=== PATIENT | female | born 1970 | race Caucasian/White ===

== ENCOUNTER 2023-02-15 21:25 | Emergency (ER) | payer SELFPAY ==
--- NOTE | 2023-02-15 21:29 | ECG_ITS ---
[facility] Test Date: 2023-02-15 Pat Name: Adele Leung Department: Room: Gender: Female Prison Officer: : 1970 Requested By: Luis M Del Toro Order Number: [id number] Ezekiel MD: Evert Gray M.D. Measurements Intervals [place] Rate: 60 P: 17 MT: 145 QRS: 7 QRSD: 85 T: 48 QT: 424 QTc: 425 Interpretive Statements SINUS RHYTHM POSSIBLE LEFT ATRIAL ENLARGEMENT [-0.1mV P-WAVE IN V1/V2] POSSIBLE RIGHT VENTRICULAR CONDUCTION DELAY [RSR (QR) IN V1/V2] No previous ECG available for comparison Poor R wave progression Electronically Signed On 02-16-2023 22:18:02 CDT by Evert Gray M.D. [id number]
--- NOTE | 2023-02-15 21:29 | XRR_ITS ---
PROCEDURE INFORMATION: Exam: XR Chest Exam date and time: 02/15/2023 9:55 PM Age: 52 years old Clinical indication: Pain; Chest pressure; Prior surgery; Surgery date: 6+ months; Surgery type: Stents and valve replacement; Additional info: Cp TECHNIQUE: Imaging protocol: Radiologic exam of the chest. Views: 1 view. COMPARISON: No relevant prior studies available. FINDINGS: Lungs: The lungs are hyperinflated, suggesting COPD. No consolidative pulmonary infiltrates are noted. Pleural spaces: No pleural effusion. No pneumothorax. Heart/Mediastinum: No cardiomegaly. Bones/joints: Median sternotomy noted. XR/XR chest 1V portable [id number] IMPRESSION: 1. The lungs are hyperinflated, suggesting COPD. 2. No acute abnormality demonstrated.
[2023-02-15 21:38] VITALS: BP 166/88; PULSE 65; RESP 14; TEMP 36.8; O2SAT 95; BMI 31.8
--- NOTE | 2023-02-15 22:02 | W.ED.CHESTPA ---
HPI - Chest Pain General: Chief Complaint: Chest Pain Stated Complaint: chest pain Time Seen by Provider: 02/15/23 21:31 History of Present Illness: Patient is a 52-year-old female comes to the ED with chest pain. Patient has a history of hypertension, COPD and has had 3 cardiac stents placed in the past. Patient states that she is compliant with all her current medications and takes warfarin. Patient's chest pain started while she was exerting herself [place] 3 days ago. Chest pain was located on the left side of chest and described as sharp and aching type pain. Patient says her chest pain improved when she was at rest but was still present. Endorses some shortness of breath as well. Pain worsens with exertion, deep inspiration or coughing. She rates the pain at night and 8 out of 10. Denies any fevers, vomiting, nausea, abdominal pain, bladder or bowel symptoms. Patient is new to [facility] and just moved here couple weeks ago. She does not have a primary care provider locally and would like referral for local PCP. Associated symptoms: Reports dyspnea; Deny abdominal pain, fever(s), nausea, palpitations or vomiting Review of Systems Const: Denies: fever(s), chills or fatigue Eyes: Denies: change in vision or eye discomfort ENMT: Denies: throat pain, odynophagia, nasal discharge or nasal congestion Card: Reports: chest pain; Denies: palpitations, edema, swelling of feet/ankles, dyspnea on exertion or orthopnea Resp: Reports: dyspnea; Denies: productive cough or non-productive cough GI: Denies: abdominal pain, nausea, vomiting, diarrhea, constipation or hematochezia : Denies: flank pain, dysuria or hematuria Musc: Denies: neck pain, back pain or extremity swelling Skin/Breast: Denies: rash or new lesions Neuro: Denies: headache(s), numbness in extremities or weakness in extremities PFSH ED PFSH: Medical History COPD (chronic obstructive pulmonary disease) Hypertension Surgical History Hx of heart artery stent Physical Exam Const: COMMON NORMALS: patient oriented x3 and alert GENERAL APPEARANCE: cooperative HENMT: COMMON NORMALS: normocephalic HEAD & SCALP: normocephalic MOUTH: Normal oral and palatal mucosa present THROAT: posterior oropharynx normal and uvula midline Neck/C-Spine: COMMON NORMALS: supple GENERAL: Yes normal visual inspection Resp: COMMON NORMALS: normal respiratory effort, No retractions, No use of accessory muscles and clear to auscultation bilaterally AUSCULTATION: clear to auscultation bilaterally Cardio: COMMON NORMALS: regular rate, regular rhythm, S1 normal heart sound present, S2 normal heart sound present, No gallops present (Cardio), No clicks present (Cardio), No murmurs present (Cardio) and Peripheral pulses 2+ throughout RATE: regular rate RHYTHM: regular rhythm HEART SOUNDS: S1 normal heart sound present and S2 normal heart sound present PERIPHERAL PULSES: Peripheral pulses 2+ throughout GI: COMMON NORMALS: Normal to inspection, nondistended, normoactive bowel sounds present, Soft to palpation, non-tender and no masses PALPATION: Yes Soft to palpation : COMMON NORMALS: Yes no CVA tenderness BLADDER/KIDNEY EXAM: Yes no CVA tenderness Back/Pelvis: COMMON NORMALS: no CVA tenderness Extremity: COMMON NORMALS: normal to inspection Neuro: COMMON NORMALS: patient oriented x3 SENSORIUM/ORIENTATION: Yes alert GAIT: Yes Normal gait present Skin: GENERAL SKIN EXAM: dry skin Course Vital Signs: Vital signs: Vital Signs Temperature 98.3 F 02/15/23 21:38 Pulse Rate 64 02/16/23 01:04 Respiratory Rate 16 02/16/23 01:04 Blood Pressure 140/78 02/16/23 01:04 Pulse Oximetry 95 02/16/23 01:04 Oxygen Delivery Me thod Room Air 02/16/23 00:30 MDM - Chest Pain Medical Decision Making Patient is a 52-year-old female comes to the ED with chest pain. Patient has a history of hypertension, COPD and has had 3 cardiac stents placed in the past. Patient states that she is compliant with all her current medications and takes warfarin. Patient's chest pain started while she was exerting herself working [place] 3 days ago. Chest pain was located on the left side of chest and described as sharp and aching type pain. Patient says her chest pain improved when she was at rest but was still present. Endorses some shortness of breath as well. Pain worsens with exertion, deep inspiration or coughing. She rates the pain at night and 8 out of 10. Denies any fevers, vomiting, nausea, abdominal pain, bladder or bowel symptoms. Patient is new to [facility] and just moved here couple weeks ago. She does not have a primary care provider locally and would like referral for local PCP. Vital stable. Exam of patient is benign. CBC and CMP are unremarkable. Troponins negative. INR of 1.35. EKG shows no acute findings. Chest x-ray shows no acute findings. Patient was given aspirin and morphine to help with pain. I placed an order with case management for patient to be set up with a PCP here locally since she is no one down. Patient was stable for discharge home and diagnosed with atypical chest pain. Told to follow-up with her PCP at her scheduled appointment. Strict return to ED precautions given. Patient understood and agreed with plan. Lab Data I reviewed the patient's lab results. 02/15/23 22:00 02/15/23 22:00 Radiology Impressions Chest X-Ray 02/15/23 21:29 IMPRESSION: 1. The lungs are hyperinflated, suggesting COPD. 2. No acute abnormality demonstrated. Laboratory Results WBC 7.3 10^3/uL (4.0-10.0) 02/15/23 22:00 RBC 4.41 10^6/uL (4.1-5.3) 02/15/23 22:00 Hgb 14.4 g/dL (11.5-15.3) 02/15/23 22:00 Hct 43.3 % (37.0-47.0) 02/15/23 22:00 MCV 98.2 fl (81-99) 02/15/23 22:00 MCH 32.7 pg (28.0-34.0) 02/15/23 22:00 MCHC 33.3 g/dL (30.0-36.0) 02/15/23 22:00 RDW 14.1 % (12.1-15.1) 02/15/23 22:00 Plt Count 220 10^3/cmm (130-400) 02/15/23 22:00 MPV 11.1 fL (7.4-10.4) H 02/15/23 22:00 Neut % (Auto) 49.0 % 02/15/23 22:00 Lymph % (Auto) 32.1 % 02/15/23 22:00 [place] % (Auto) 13.8 % 02/15/23 22:00 Eos % (Auto) 3.7 % 02/15/23 22:00 Baso % (Auto) 1.1 % 02/15/23 22:00 Neut # (Auto) 3.60 10^3/uL (1.8-7.7) 02/15/23 22:00 Lymph # (Auto) 2.4 10^3/uL (0.8-4.8) 02/15/23 22:00 [place] # (Auto) 1.0 10^3/uL (0.2-0.9) H 02/15/23 22:00 Eos # (Auto) 0.3 10^3/uL (0.0-0.8) 02/15/23 22:00 Baso # (Auto) 0.1 10^3/uL (0.0-0.1) 02/15/23 22:00 Nucleated RBC % (auto) 0 % 02/15/23 22:00 Nucleated RBCs # 0.0 /100WBC 02/15/23 22:00 PT 17.10 SECONDS (12.1-14.9) H 02/15/23 22:00 INR 1.35 (0.8-1.2) H 02/15/23 22:00 Sodium 139 mmol/L (136-145) 02/15/23 22:00 Potassium 4.4 mmol/L (3.5-5.1) 02/15/23 22:00 Chloride 104 mmol/L (98-107) 02/15/23 22:00 Carbon Dioxide 27 mmol/L (22-29) 02/15/23 22:00 Anion Gap 12.4 (5-19) 02/15/23 22:00 BUN 16 mg/dL (6-20) 02/15/23 22:00 Creatinine 0.8 mg/dL (0.5-0.9) 02/15/23 22:00 GFR Calculation 74.7 mL/min (90-130) L 02/15/23 22:00 Glucose 86 mg/dL (65-115) 02/15/23 22:00 Calculated Osmolality 288 mOsm/kg (285-295) 02/15/23 22:00 Calcium 9.4 mg/dL (8.5-10.5) 02/15/23 22:00 Total Bilirubin 0.4 mg/dL (0.15-1.2) 02/15/23 22:00 AST 18 U/L (0-32) 02/15/23 22:00 ALT 19 U/L (0-33) 02/15/23 22:00 Alkaline Phosphatase 86 U/L (35-105) 02/15/23 22:00 Troponin T Baseline 9 ng/L (0-10) 02/15/23 22:00 Troponin T 120 Minute 7.87 ng/L (0-10) 02/16/23 00:00 Delta Troponin T -1.14 ABS# (0-10) L 02/16/23 00:00 Troponin T Hi Sens 6Hr Cancelled 02/16/23 04:00 Troponin T Hi Sens 6Hr Delta Cancelled 02/16/23 04:00 Total Protein 6.4 g/dL (6.6-8.7) L 02/15/23 22:00 Albumin 4.2 g/dL (3.5-5.2) 02/15/23 22:00 Globulin 2.2 g/dL (1.3-4.6) 02/15/23 22:00 EKG Data EKG 1: EKG interpretation date: 02/15/23 Interpretation: Normal sinus rhythm, 60 bpm, no ST segment elevation or depression seen. Discharge Plan Discharge Patient Disposition: Home Clinical Impression: Atypical chest pain Condition: Stable Discharge Orders: Discharge ED (Routine); Ordered 02/16/23 Ordered By: Davian Ayala Discharge Diet: Regular Discharge Activity: Increase activity as tolerated Patient Instructions: Chest Pain (ED) Activity Restrictions/Additional Instructions: Follow-up with medical provider as directed. Case management should contact you in the next several days to set up an appointment with a primary care physician. Continue taking all home medications as previously prescribed. Return to the ER or your medical provider if condition worsens. Please read and understand discharge instructions. Thank you for choosing [facility] for your healthcare needs today. Please realize this is an emergency room and that we are providing you with a medical screening exam and this may not be complete and all inclusive of all the testing and or work up that you may need to determine your ailment or severity of your illness. It is very important that you follow up as instructed or that you return to the Emergency Department should you have concerns or if your condition changes or worsens in any way. Coding Level of Care Code ED Plant Taxonomy Teacher for Marquise Mendiola
[2023-02-15 22:03] VITALS: BP 123/75; PULSE 62; RESP 14; O2SAT 96
[2023-02-15 22:06] LABS: Basophils # 0.1 10^3/uL (0.0-0.1); Basophils % 1.1 %; Eosinophils # 0.3 10^3/uL (0.0-0.8); Eosinophils % 3.7 %; Hematocrit 43.3 % (37.0-47.0); Hemoglobin 14.4 g/dL (11.5-15.3); Lymphocytes # 2.4 10^3/uL (0.8-4.8); Lymphocytes % 32.1 %; Mean Corpuscular HGB Conc 33.3 g/dL (30.0-36.0); Mean Corpuscular Hemoglobin 32.7 pg (28.0-34.0); Mean Corpuscular Volume 98.2 fl (81-99); Mean Platelet Volume 11.1 fL (7.4-10.4); Monocytes % 13.8 %; Nucleated Red Blood Cells % 0 %; Platelet Count 220 10^3/cmm (130-400); Red Blood Count 4.41 10^6/uL (4.1-5.3); Red Cell Distribution Width 14.1 % (12.1-15.1); White Blood Count 7.3 10^3/uL (4.0-10.0)
[2023-02-15] MEDS: aspirin 81 mg Chew Tablet 324 MG PO (22:12)
[2023-02-15 22:13] VITALS: RESP 16; O2SAT 96
[2023-02-15] MEDS: morphine 4 mg/mL SDV 1 mL IVP (22:13)
[2023-02-15 22:17] LABS: INR 1.35 (0.8-1.2)
[2023-02-15] MEDS: ondansetron 2 mg/ML SDV 2 mL 4 MG IVP (22:17)
[2023-02-15 22:23] LABS: Alanine Aminotransferase 19 U/L (0-33); Albumin Level 4.2 g/dL (3.5-5.2); Alkaline Phosphatase 86 U/L (35-105); Anion Gap 12.4 (5-19); Aspartate Amino Transferase 18 U/L (0-32); Blood Urea Nitrogen 16 mg/dL (6-20); Calcium 9.4 mg/dL (8.5-10.5); Carbon Dioxide 27 mmol/L (22-29); Chloride 104 mmol/L (98-107); Creatinine Clr Calc Pharmacy 81.3476; Globulin 2.2 g/dL (1.3-4.6); Glomerular Filtration Rate 74.7 mL/min (90-130); Glucose 86 mg/dL (65-115); Osmolality Calculated 288 mOsm/kg (285-295); Potassium 4.4 mmol/L (3.5-5.1); Sodium 139 mmol/L (136-145); Total Bilirubin 0.4 mg/dL (0.15-1.2); Total Protein 6.4 g/dL (6.6-8.7)
[2023-02-15 22:25] LABS: Troponin(5th) Baseline 9 ng/L (0-10)
[2023-02-15 23:32] VITALS: BP 173/71; PULSE 64; RESP 20; O2SAT 93
--- NOTE | 2023-02-15 23:48 | ECG_ITS ---
[facility] Test Date: 2023-02-15 Pat Name: Adele Leung Department: Room: Gender: Female Manager Internal: : 1970 Requested By: Luis M Del Toro Order Number: [id number] Ezekiel MD: Evert Gray M.D. Measurements Intervals [place] Rate: 60 P: 26 ID: [id number] QRS: 21 QRSD: 89 T: 52 QT: 425 QTc: 427 Interpretive Statements SINUS RHYTHM POSSIBLE RIGHT VENTRICULAR CONDUCTION DELAY [RSR (QR) IN V1/V2] SEPTAL MYOCARDIAL INFARCTION , OF INDETERMINATE AGE [40+ ms Q WAVE IN V1/V2] Compared to ECG 02/15/2023 21:47:51 Myocardial infarct finding now present Electronically Signed On 02-16-2023 22:36:04 CDT by Evetr Gray M.D. [id number]
[2023-02-16] VITALS: BP 134/74; PULSE 61; O2SAT 93
[2023-02-16 00:30] VITALS: BP 156/75; PULSE 63; O2SAT 93
[2023-02-16 00:33] LABS: Troponin 5 2HR 7.87 ng/L (0-10)
[2023-02-16 00:46] LABS: Troponin 5 2HR Delta -1.14 ABS# (0-10)
[2023-02-16] MEDS: HYDROcodone-acetaminophen 7.5-325 mg Tablet 1 TAB PO (00:53)
[2023-02-16 01:04] VITALS: BP 140/78; PULSE 64; RESP 16; O2SAT 95
--- NOTE | 2023-02-16 11:22 | PC.NURSE ---
Patient was seen in the ED on 02/16/23. She is new to the area and needs set up with a PCP. TCM attempted to call patient and had to leave a message.
--- NOTE | 2023-02-24 10:20 | DCPLANNER ---
TCM called patient due to no primary care physician - no answer at this time.
== END 2023-02-16 01:08 | disposition home or self-care (01) ==
PROVIDERS: Emergency Medicine; Emergency Provider Physician Assistant
DX: R07.89 Other chest pain (principal); J44.9 Chronic obstructive pulmonary disease, unspecified; I10 Essential (primary) hypertension
CPT/HCPCS: 71045; 80053; 84484; 85025; 85610; 93005; 96374; 96375; 99285; J2270; J2405

== ENCOUNTER 2023-07-23 18:59 | Emergency (ER) | payer BC, MEDICAID, SELFPAY ==
[2023-07-23] VITALS (14 sets, daily range): BP systolic 108–164; BP diastolic 61–97; PULSE 106–120; RESP 15–23; TEMP 36.7–37.9; O2SAT 99–100; BMI 30.2
--- NOTE | 2023-07-23 19:05 | ED_ITS ---
Documented by User: RENU Cash 07/23/23 22:41 HPI - Abdominal Pain General: Chief Complaint: GI Bleed Stated Complaint: ABD PAIN Time Seen by Provider: 07/23/23 19:05 History of Present Illness: 53-year-old female comes in today for concerns of GI bleed. Patient reports that she had an INR done on which showed her result at 10.7. Patient since then has held her warfarin. Patient reports her INR from last week was 2.6. Patient noticed black stools today. Patient feels weak and like she is going to pass out. Patient does have a history of blood transfusion, prior GI bleed, coronary artery disease, thyroid disorder, and hypertension. Patient has had abdominal surgeries for hernia repair, hysterectomy,, gallbladder, and a ppendectomy. Patient has a mechanical valve. Patient appears pale. Patient appears nontoxic. Patient appears in mild pain. Patient reports taking 2 doses of oral vitamin K. Associated Symptoms: Reports change in stool character and melena; Denies chills and fever(s) Review of Systems General: Reports: 10 or more systems reviewed and unremarkable except in HPI and below Const: Reports: fatigue; Denies: fever(s) or chills Card: Denies: chest pain Resp: Denies: dyspnea GI: Reports: change in stool character and melena : Denies: difficulty voiding PFSH ED PFSH: Medical History COPD (chronic obstructive pulmonary disease) Hypertension Surgical History Hx of heart artery stent Physical Exam Const: COMMON NORMALS: alert HENMT: COMMON NORMALS: normocephalic HEAD & SCALP: normocephalic MOUTH: Normal oral and palatal mucosa present Neck/C-Spine: COMMON NORMALS: full ROM Resp: COMMON NORMALS: normal respiratory effort and clear to auscultation bilaterally AUSCULTATION: clear to auscultation bilaterally Cardio: COMMON NORMALS: regular rate and regular rhythm RATE: regular rate RHYTHM: regular rhythm GI: COMMON NORMALS: Soft to palpation AUSCULTATION: Yes normoactive bowel sounds PALPATION: Yes Soft to palpation and Yes Tenderness to palpation present (GI) (Mild, generalized) RECTAL EXAM: heme positive stool Back/Pelvis: COMMON NORMALS: thoracic and lumbar spine normal to inspection Extremity: COMMON NORMALS: no pedal edema Neuro: SENSORIUM/ORIENTATION: Yes alert Skin: NARRATIVE SKIN EXAM: Pale skin color Course ED course: 2029, reviewed patient with Dr. Kam, attending ER physician. INR came back greater than 23 assumed care of of patient. Vital Signs: Vital signs: Vital Signs Temperature 98.8 F 07/23/23 22:09 Pulse Rate 106 H 07/23/23 22:09 Respiratory Rate 20 H 07/23/23 22:18 Blood Pressure 133/87 07/23/23 22:09 Pulse Oximetry 99 07/23/23 22:18 Oxygen Delivery Me thod Room Air 07/23/23 22:01 MDM - Abdominal Pain Medical Decision Making 53-year-old female comes in today for complaints of black tarry stools and abdo adria discomfort. Patient has a history of GI bleed and believes she has a present GI bleed. Patient reports no zaria blood in the stool. Abdomen soft with generalized tenderness. Rectal exam notes black stool hemoccult postive. Skin color is pale. Respirations are even. Lungs are clear to auscultation. Vital signs note some mild tachycardia and a temperature of 100.3. Differential diagnosis includes not limited to GI bleed, anticoagulated, bowel perforation, bowel obstruction. Lab Data 07/23/23 19:20 07/23/23 19:20 Labs/Radiology: Radiology Impressions Abdomen/Pelvis CT 07/23/23 19:12 IMPRESSION: 1. Patchy ground-glass opacities at each lung base may reflect developing pneumonitis which could contribute to nausea. Otherwise, no acute abnormality to explain patient's symptoms. No evidence of bowel obstruction. No visible gastrointestinal bleeding. 2. Low-attenuation bilateral renal lesions are likely cysts, but cannot be confirmed as simple cyst by attenuation coefficient. Consider nonemergent renal mass protocol CT or MR for full characterization. COMMENTS: Consistent with the [place] [employer]'s Incidental Findings Committee white paper (J Am Bambi Radiol 2018): Any incidental renal lesion less than 1 cm or classified as too small to characterize, or any incidental cystic renal lesion characterized as simple-appearing, is likely benign. No follow-up imaging is recommended for these lesions per consensus recommendations based on imaging criteria. Chest X-Ray 07/23/23 19:47 IMPRESSION: Hyperinflated but clear lungs. No other acute cardiopulmonary abnormality. Laboratory Results WBC 14.57 10^3/uL (3.29-11.43) H 07/23/23 19:20 RBC 1.83 10^6/uL (3.85-5.65) L 07/23/23 19:20 Hgb 6.00 g/dL (11.27-16.99) L* 07/23/23 19:20 Hct 18.0 % (36-47) L* 07/23/23 19:20 MCV 98.4 fl (85-98) H 07/23/23 19:20 MCH 32.8 pg (27-33) 07/23/23 19:20 MCHC 33.3 g/dL (30-55) 07/23/23 19:20 RDW 14.9 % (12.1-15.1) 07/23/23 19:20 Plt Count 140 10^3/cmm (157-399) L 07/23/23 19:20 MPV 12.6 fL (7.4-10.4) H 07/23/23 19:20 Neut % (Auto) 75.3 % 07/23/23 19:20 Lymph % (Auto) 16.2 % 07/23/23 19:20 [place] % (Auto) 7.5 % 07/23/23 19:20 Eos % (Auto) 0.1 % 07/23/23 19:20 Baso % (Auto) 0.2 % 07/23/23 19:20 Neut # (Auto) 10.97 10^3/uL (1.8-7.7) H 07/23/23 19:20 Lymph # (Auto) 2.4 10^3/uL (0.8-4.8) 07/23/23 19:20 [place] # (Auto) 1.1 10^3/uL (0.2-0.9) H 07/23/23 19:20 Eos # (Auto) 0.0 10^3/uL (0.0-0.8) 07/23/23 19:20 Baso # (Auto) 0.0 10^3/uL (0.0-0.1) 07/23/23 19:20 Nucleated RBC % (auto) 0.3 % 07/23/23 19:20 Nucleated RBCs # 0.0 /100WBC 07/23/23 19:20 PT > 120.00 SECONDS (12.1-14.9) H 07/23/23 20:40 INR > 20.00 (0.8-1.2) H* 07/23/23 20:40 APTT 76.3 SECONDS (23.9-36.7) H 07/23/23 20:40 Fibrinogen 316 mg/dL (174-498) 07/23/23 20:40 D-Dimer 0.31 ug/mLFEU (0-0.59) 07/23/23 20:40 Sodium 143 mmol/L (136-145) 07/23/23 19:20 Potassium 3.9 mmol/L (3.5-5.1) 07/23/23 19:20 Chloride 113 mmol/L (98-107) H 07/23/23 19:20 Carbon Dioxide 23 mmol/L (22-29) 07/23/23 19:20 Anion Gap 10.9 (5-19) 07/23/23 19:20 BUN 52 mg/dL (6-20) H 07/23/23 19:20 Creatinine 0.6 mg/dL (0.5-0.9) 07/23/23 19:20 GFR Calculation 103.8 mL/min (90-130) 07/23/23 19:20 Glucose 133 mg/dL (65-115) H 07/23/23 19:20 Calculated Osmolality 312 mOsm/kg (285-295) H 07/23/23 19:20 Calcium 8.1 mg/dL (8.5-10.5) L 07/23/23 19:20 Total Bilirubin 0.2 mg/dL (0.15-1.2) 07/23/23 19:20 AST 16 U/L (0-32) 07/23/23 19:20 ALT 14 U/L (0-33) 07/23/23 19:20 Alkaline Phosphatase 39 U/L (35-105) 07/23/23 19:20 Troponin T Baseline 9 ng/L (0-10) 07/23/23 19:20 Troponin T 120 Minute 13.51 ng/L (0-10) H 07/23/23 21:25 Delta Troponin T 4.51 ABS# (0-10) 07/23/23 21:25 Total Protein 5.0 g/dL (6.6-8.7) L 07/23/23 19:20 Albumin 3.3 g/dL (3.5-5.2) L 07/23/23 19:20 Globulin 1.7 g/dL (1.3-4.6) 07/23/23 19:20 Lipase 33 U/L (13-60) 07/23/23 19:20 Urine Color Yellow (Yellow) 07/23/23 21:45 Urine Appearance Clear (CLEAR) 07/23/23 21:45 Urine pH 6.5 (5-7) 07/23/23 21:45 Ur Specific [place] 1.000 (1.005-1.030) L 07/23/23 21:45 Urine Protein Trace (Negative) 07/23/23 21:45 Urine Glucose (UA) Norm (Normal) 07/23/23 21:45 Urine Ketones Negative (Negative) 07/23/23 21:45 Urine Blood 3+ (Negative) H 07/23/23 21:45 Urine Nitrate Negative (Negative) 07/23/23 21:45 Urine Bilirubin Neg (Negative) 07/23/23 21:45 Urine Urobilinogen Neg mg/dL (Negative) 07/23/23 21:45 Ur Leukocyte Esterase Trace (Negative) H 07/23/23 21:45 Urine RBC 15-25 /hpf (0-2) H 07/23/23 21:45 Urine WBC Rare /hpf (0-5) 07/23/23 21:45 Ur Squamous Epith Cells 0-4 /hpf (0-5) H 07/23/23 21:45 Amorphous Sediment Not Reportable 07/23/23 21:45 Urine Bacteria None /hpf (NONE) 07/23/23 21:45 Nasal Influ A H1 2009 PCR Not detected (NOT DETECT) 07/23/23 20: Adenovirus (PCR) Not detected (NOT DETECT) 07/23/23 20: C. pneumoniae DNA (PCR) Not detected (NOT DETECT) 07/23/23 20: Coronavirus 229E (PCR) Not detected (NOT DETECT) 07/23/23 20: Human Metapneumovir PCR Not detected (NOT DETECT) 07/23/23 20: Influenza A (H1) PCR Not detected (NOT DETECT) 07/23/23 20:23 Influenza A (H3) PCR Not detected (NOT DETECT) 07/23/23 20:23 Influenza Type A (PCR) Not detected (NOT DETECT) 07/23/23 20:23 Influenza Type B (PCR) Not detected (NOT DETECT) 07/23/23 20:23 M. pneumoniae (PCR) Not detected (NOT DETECT) 07/23/23 20:23 Parainfluenza 1 (PCR) Not detected (NOT DETECT) 07/23/23 20:23 Parainfluenza 2 (PCR) Not detected (NOT DETECT) 07/23/23 20:23 Parainfluenza 3 (PCR) Not detected (NOT DETECT) 07/23/23 20:23 Parainfluenza 4 (PCR) Not detected (NOT DETECT) 07/23/23 20:23 RSV Type A (PCR) Not detected (NOT DETECT) 07/23/23 20:23 RSV Type B (PCR) Not detected (NOT DETECT) 07/23/23 20:23 Entero/Rhino (PCR) Not detected (NOT DETECT) 07/23/23 20:23 SARS-CoV-2 (PCR) Not detected (NOT DETECT) 07/23/23 20:23 Blood Type A Positive 07/23/23 19:20 Rho(D) Type Positive 07/23/23 19:20 Antibody Screen Negative 07/23/23 19:20 Crossmatch See Detail 07/23/23 19:20 All radiology interpretation(s) finalized by discharge Discharge Plan Discharge Patient Disposition: Xfer Short-Term Hosp Clinical Impression: Warfarin-induced coagulopathy GI (gastrointestinal bleed) Qualifiers: GI bleed type/associated pathology: unspecified gastrointestinal hemorrhage type Qualified Code(s): K92.2 - Gastrointestinal hemorrhage, unspecified Condition: Critical Coding Level of Care Code ED Delivery Motorcycle Driver for Chg Fwd Documented by User: Eduar Kam DO 07/23/23 23:34 HPI - Abdominal Pain General: Chief Complaint: GI Bleed Stated Complaint: ABD PAIN Time Seen by Provider: 07/23/23 19:05 [facility] Medical History COPD (chronic obstructive pulmonary disease) Hypertension Surgical History Hx of heart artery stent Course Vital Signs: Vital signs: Vital Signs Temperature 98.8 F 07/23/23 22:09 Pulse Rate 106 H 07/23/23 22:09 Respiratory Rate 20 H 07/23/23 22:18 Blood Pressure 133/87 07/23/23 22:09 Pulse Oximetry 99 07/23/23 22:18 Oxygen Delivery Me thod Room Air 07/23/23 22:01 MDM - Abdominal Pain Medical Decision Making 53-year-old female comes in today for complaints of black tarry stools and abdominal discomfort. Patient has a history of GI bleed and believes she has a present GI bleed. Patient reports no zaria blood in the stool. Abdomen soft with generalized tenderness. Rectal exam notes black stool hemoccult postive. Skin color is pale. Respirations are even. Lungs are clear to auscultation. Vital signs note some mild tachycardia and a temperature of 100.3. Differential diagnosis includes not limited to GI bleed, anticoagulated, bowel perforation, bowel obstruction. This patient was originally seen by RENU Ibarra. I agree with his history, evaluation, and initial treatment. I have seen the patient as well, and examined her. This patient has multiple problems. She has an upper GI bleed, with no clear source by CT. Her hemoglobin is 6. Her BUN is elevated at 52. INR is greater than 20. We have 2 units of packed red cells crossmatched for her. We have 2 units of FFP so far ready for transfusion. She has 4 lines for access. The patient has a temperature as well. Some patchy groundglass opacities in the bases of her lungs by abdominal CT with a clear chest x-ray. She is covered with Zosyn for this. This may be driving a Coumadin coagulopathy of some sort. DIC panel is also pending. We do not have GI services or critical care available at this facility. This patient needs both. I spoke with the hospitalist team at [facility] in [facility]. They are willing to take in transfer. They suggest more FFP, which I agree the patient will need, but we will not have time to infuse more than 2 units here, as she is almost ready to leave the facility. We have contacted area EMS services, but they have declined due to weather. The patient will have to go by ground. Lab Data 07/23/23 19:20 07/23/23 19:20 Labs/Radiology: Radiology Impressions Abdomen/Pelvis CT 07/23/23 19:12 IMPRESSION: 1. Patchy ground-glass opacities at each lung base may reflect developing pneumonitis which could contribute to nausea. Otherwise, no acute abnormality to explain patient's symptoms. No evidence of bowel obstruction. No visible gastrointestinal bleeding. 2. Low-attenuation bilateral renal lesions are likely cysts, but cannot be confirmed as simple cyst by attenuation coefficient. Consider nonemergent renal mass protocol CT or MR for full characterization. COMMENTS: Consistent with the [place] [employer]'s Incidental Findings Committee white paper (J Am Bambi Radiol 2018): Any incidental renal lesion less than 1 cm or classified as too small to characterize, or any incidental cystic renal lesion characterized as simple-appearing, is likely benign. No follow-up imaging is recommended for these lesions per consensus recommendations based on imaging criteria. Chest X-Ray 07/23/23 19:47 IMPRESSION: Hyperinflated but clear lungs. No other acute cardiopulmonary abnormality. Laboratory Results WBC 14.57 10^3/uL (3.29-11.43) H 07/23/23 19:20 RBC 1.83 10^6/uL (3.85-5.65) L 07/23/23 19:20 Hgb 6.00 g/dL (11.27-16.99) L* 07/23/23 19:20 Hct 18.0 % (36-47) L* 07/23/23 19:20 MCV 98.4 fl (85-98) H 07/23/23 19:20 MCH 32.8 pg (27-33) 07/23/23 19:20 MCHC 33.3 g/dL (30-55) 07/23/23 19:20 RDW 14.9 % (12.1-15.1) 07/23/23 19:20 Plt Count 140 10^3/cmm (157-399) L 07/23/23 19:20 MPV 12.6 fL (7.4-10.4) H 07/23/23 19:20 Neut % (Auto) 75.3 % 07/23/23 19:20 Lymph % (Auto) 16.2 % 07/23/23 19:20 [place] % (Auto) 7.5 % 07/23/23 19:20 Eos % (Auto) 0.1 % 07/23/23 19:20 Baso % (Auto) 0.2 % 07/23/23 19:20 Neut # (Auto) 10.97 10^3/uL (1.8-7.7) H 07/23/23 19:20 Lymph # (Auto) 2.4 10^3/uL (0.8-4.8) 07/23/23 19:20 [place] # (Auto) 1.1 10^3/uL (0.2-0.9) H 07/23/23 19:20 Eos # (Auto) 0.0 10^3/uL (0.0-0.8) 07/23/23 19:20 Baso # (Auto) 0.0 10^3/uL (0.0-0.1) 07/23/23 19:20 Nucleated RBC % (auto) 0.3 % 07/23/23 19:20 Nucleated RBCs # 0.0 /100WBC 07/23/23 19:20 PT > 120.00 SECONDS (12.1-14.9) H 07/23/23 20:40 INR > 20.00 (0.8-1.2) H* 07/23/23 20:40 APTT 76.3 SECONDS (23.9-36.7) H 07/23/23 20:40 Fibrinogen 316 mg/dL (174-498) 07/23/23 20:40 D-Dimer 0.31 ug/mLFEU (0-0.59) 07/23/23 20:40 Sodium 143 mmol/L (136-145) 07/23/23 19:20 Potassium 3.9 mmol/L (3.5-5.1) 07/23/23 19:20 Chloride 113 mmol/L (98-107) H 07/23/23 19:20 Carbon Dioxide 23 mmol/L (22-29) 07/23/23 19:20 Anion Gap 10.9 (5-19) 07/23/23 19:20 BUN 52 mg/dL (6-20) H 07/23/23 19:20 Creatinine 0.6 mg/dL (0.5-0.9) 07/23/23 19:20 GFR Calculation 103.8 mL/min (90-130) 07/23/23 19:20 Glucose 133 mg/dL (65-115) H 07/23/23 19:20 Calculated Osmolality 312 mOsm/kg (285-295) H 07/23/23 19:20 Calcium 8.1 mg/dL (8.5-10.5) L 07/23/23 19:20 Total Bilirubin 0.2 mg/dL (0.15-1.2) 07/23/23 19:20 AST 16 U/L (0-32) 07/23/23 19:20 ALT 14 U/L (0-33) 07/23/23 19:20 Alkaline Phosphatase 39 U/L (35-105) 07/23/23 19:20 Troponin T Baseline 9 ng/L (0-10) 07/23/23 19:20 Troponin T 120 Minute 13.51 ng/L (0-10) H 07/23/23 21:25 Delta Troponin T 4.51 ABS# (0-10) 07/23/23 21:25 Total Protein 5.0 g/dL (6.6-8.7) L 07/23/23 19:20 Albumin 3.3 g/dL (3.5-5.2) L 07/23/23 19:20 Globulin 1.7 g/dL (1.3-4.6) 07/23/23 19:20 Lipase 33 U/L (13-60) 07/23/23 19:20 Urine Color Yellow (Yellow) 07/23/23 21:45 Urine Appearance Clear (CLEAR) 07/23/23 21:45 Urine pH 6.5 (5-7) 07/23/23 21:45 Ur Specific [place] 1.000 (1.005-1.030) L 07/23/23 21:45 Urine Protein Trace (Negative) 07/23/23 21:45 Urine Glucose (UA) Norm (Normal) 07/23/23 21:45 Urine Ketones Negative (Negative) 07/23/23 21:45 Urine Blood 3+ (Negative) H 07/23/23 21:45 Urine Nitrate Negative (Negative) 07/23/23 21:45 Urine Bilirubin Neg (Negative) 07/23/23 21:45 Urine Urobilinogen Neg mg/dL (Negative) 07/23/23 21:45 Ur Leukocyte Esterase Trace (Negative) H 07/23/23 21:45 Urine RBC 15-25 /hpf (0-2) H 07/23/23 21:45 Urine WBC Rare /hpf (0-5) 07/23/23 21:45 Ur Squamous Epith Cells 0-4 /hpf (0-5) H 07/23/23 21:45 Amorphous Sediment Not Reportable 07/23/23 21:45 Urine Bacteria None /hpf (NONE) 07/23/23 21:45 Nasal Influ A H1 2009 PCR Not detected (NOT DETECT) 07/23/23 20: Adenovirus (PCR) Not detected (NOT DETECT) 07/23/23 20: C. pneumoniae DNA (PCR) Not detected (NOT DETECT) 07/23/23 20: Coronavirus 229E (PCR) Not detected (NOT DETECT) 07/23/23 20: Human Metapneumovir PCR Not detected (NOT DETECT) 07/23/23 20: Influenza A (H1) PCR Not detected (NOT DETECT) 07/23/23 20: Influenza A (H3) PCR Not detected (NOT DETECT) 07/23/23 20: Influenza Type A (PCR) Not detected (NOT DETECT) 07/23/23 20: Influenza Type B (PCR) Not detected (NOT DETECT) 07/23/23 20: M. pneumoniae (PCR) Not detected (NOT DETECT) 07/23/23 20: Parainfluenza 1 (PCR) Not detected (NOT DETECT) 07/23/23 20: Parainfluenza 2 (PCR) Not detected (NOT DETECT) 07/23/23 20: Parainfluenza 3 (PCR) Not detected (NOT DETECT) 07/23/23 20: Parainfluenza 4 (PCR) Not detected (NOT DETECT) 07/23/23 20: RSV Type A (PCR) Not detected (NOT DETECT) 07/23/23 20: RSV Type B (PCR) Not detected (NOT DETECT) 07/23/23 20: Entero/Rhino (PCR) Not detected (NOT DETECT) 07/23/23 20:23 SARS-CoV-2 (PCR) Not detected (NOT DETECT) 07/23/23 20:23 Blood Type A Positive 07/23/23 19:20 Rho(D) Type Positive 07/23/23 19:20 Antibody Screen Negative 07/23/23 19:20 Crossmatch See Detail 07/23/23 19:20 Discharge Plan Discharge Patient Disposition: Xfer Short-Term Hosp Clinical Impression: Warfarin-induced coagulopathy GI (gastrointestinal bleed) Qualifiers: GI bleed type/associated pathology: unspecified gastrointestinal hemorrhage type Qualified Code(s): K92.2 - Gastrointestinal hemorrhage, unspecified Condition: Critical Coding Level of Care Code ED Delivery Motorcycle Driver for Marquise Mendiola
--- NOTE | 2023-07-23 19:12 | CTR_ITS ---
PROCEDURE INFORMATION: Exam: CT Abdomen And Pelvis With Contrast Exam date and time: 07/23/2023 7:26 PM Age: 53 years old Clinical indication: Pain and abnormal findings; Abnormal lab test; Nausea and vomiting; Abdominal pain; Generalized; Prior surgery; Surgery date: 6+ months; Surgery type: Coronary stent. Heart valve. Gb. Appy. Hysterectomy. Patient HX: Abd pain with n/v/d. Tarry stool with decreased hemoglobin. ; Additional info: Gi bleed, abd pain TECHNIQUE: Imaging protocol: Computed tomography of the abdomen and pelvis with contrast. Radiation optimization: All CT scans at this facility use at least one of these dose optimization techniques: automated exposure control; mA and/or kV adjustment per patient size (includes targeted exams where dose is matched to clinical indication); or iterative reconstruction. Contrast material: OMNI 350; Contrast volume: 100 ml; Contrast route: INTRAVENOUS (IV); REPORTING DATA: Count of CT and Cardiac NM exams in prior 12 months: This patient has received 0 known CTs and 0 known cardiac nuclear medicine studies in the 12 months prior to the current study. COMPARISON: CR (CHEST, ) 02/15/2023 9:55 PM RADIATION DOSE METRICS: Total DLP (mGy-cm): 686.84 FINDINGS: Lungs: Patchy ground-glass opacity noted at both lung bases, right greater than left. Pleural spaces: No pleural fluid or pneumothorax. Heart: Heart size is normal. Liver: Normal configuration. Homogeneous parenchyma. Gallbladder and bile ducts: Prior cholecystectomy. No biliary tree dilation or high-density retained stones appreciated. Pancreas: Normal. No ductal dilation. Spleen: Normal. No splenomegaly. Adrenal glands: Normal configuration. Kidneys and ureters: Bilateral intrarenal calculi are demonstrated. No renal obstruction or inflammation. Several low-attenuation lesions are seen in each kidney with indeterminate attenuation coefficients. Stomach and bowel: Decompressed stomach. Normal caliber small bowel. Minimal distal colonic diverticulosis. No evidence of acute diverticulitis. Appendix: Prior appendectomy. Intraperitoneal space: No free air. No significant fluid collection. Vasculature: Moderate aortoiliac calcific atherosclerosis without aneurysm. Lymph nodes: No enlarged lymph nodes. Urinary bladder: Unremarkable as visualized. Reproductive: Prior hysterectomy. No evidence of vaginal cuff or adnexal mass. Bones/joints: Mild spinal degenerative change with patent spinal canal and neural foramina. Mild hip arthropathy. No fracture or destructive lesion. Soft tissues: Unremarkable. CT/CT abdomen pelvis w con* [id number] IMPRESSION: 1. Patchy ground-glass opacities at each lung base may reflect developing pneumonitis which could contribute to nausea. Otherwise, no acute abnormality to explain patient's symptoms. No evidence of bowel obstruction. No visible gastrointestinal bleeding. 2. Low-attenuation bilateral renal lesions are likely cysts, but cannot be confirmed as simple cyst by attenuation coefficient. Consider nonemergent renal mass protocol CT or MR for full characterization. COMMENTS: Consistent with the [place] [employer]'s Incidental Findings Committee white paper (J Am Bambi Radiol 2018): Any incidental renal lesion less than 1 cm or classified as too small to characterize, or any incidental cystic renal lesion characterized as simple-appearing, is likely benign. No follow-up imaging is recommended for these lesions per consensus recommendations based on imaging criteria.
[2023-07-23 19:27] LABS: Basophils % 0.2 %; Eosinophils % 0.1 %; Lymphocytes # 2.4 10^3/uL (0.8-4.8); Lymphocytes % 16.2 %; Mean Corpuscular HGB Conc 33.3 g/dL (30-55); Mean Corpuscular Hemoglobin 32.8 pg (27-33); Mean Corpuscular Volume 98.4 fl (85-98); Mean Platelet Volume 12.6 fL (7.4-10.4); Monocytes # 1.1 10^3/uL (0.2-0.9); Monocytes % 7.5 %; Neutrophils # 10.97 10^3/uL (1.8-7.7); Neutrophils % 75.3 %; Nucleated Red Blood Cells % 0.3 %; Platelet Count 140 10^3/cmm (157-399); Red Blood Count 1.83 10^6/uL (3.85-5.65); Red Cell Distribution Width 14.9 % (12.1-15.1); White Blood Count 14.57 10^3/uL (3.29-11.43)
[2023-07-23] MEDS: iohexol 350 mg/mL 500 mL Btl (per mL) IV (19:28)
[2023-07-23] MEDS: pantoprazole 40 mg SDV 80 MG IVP (19:44)
--- NOTE | 2023-07-23 19:47 | XRR_ITS ---
PROCEDURE INFORMATION: Exam: XR Chest Exam date and time: 07/23/2023 7:50 PM Age: 53 years old Clinical indication: Prior surgery; Surgery date: 6+ months; Surgery type: Cardiac stent and valve replacement; Patient HX: Fever; Abnormal CT finding; HX coronary stent & valve replacement TECHNIQUE: Imaging protocol: Radiologic exam of the chest. Views: 1 view. COMPARISON: CR (CHEST, ) 02/15/2023 9:55 PM FINDINGS: Tubes, catheters and devices: Aortic valve prosthesis noted. Lungs: Lungs are hyperinflated. Clear parenchyma. Pleural spaces: No pleural effusion. No pneumothorax. Heart/Mediastinum: Cardiac silhouette is normal in size for technique. Bones/joints: Prior median sternotomy. XR/XR chest 1V portable [id number] IMPRESSION: Hyperinflated but clear lungs. No other acute cardiopulmonary abnormality.
[2023-07-23 19:48] LABS: Alanine Aminotransferase 14 U/L (0-33); Albumin Level 3.3 g/dL (3.5-5.2); Alkaline Phosphatase 39 U/L (35-105); Aspartate Amino Transferase 16 U/L (0-32); Blood Urea Nitrogen 52 mg/dL (6-20); Calcium 8.1 mg/dL (8.5-10.5); Carbon Dioxide 23 mmol/L (22-29); Chloride 113 mmol/L (98-107); Globulin 1.7 g/dL (1.3-4.6); Glomerular Filtration Rate 103.8 mL/min (90-130); Glucose 133 mg/dL (65-115); Lipase 33 U/L (13-60); Osmolality Calculated 312 mOsm/kg (285-295); Sodium 143 mmol/L (136-145); Total Bilirubin 0.2 mg/dL (0.15-1.2)
[2023-07-23 19:50] LABS: Anion Gap 10.9 (5-19); Potassium 3.9 mmol/L (3.5-5.1)
[2023-07-23 20:29] LABS: Partial Thromboplastin Time 76.3 SECONDS (23.9-36.7); Prothrombin Time > 120.00 SECONDS (12.1-14.9)
[2023-07-23 20:31] LABS: INR > 20.00 (0.8-1.2)
[2023-07-23 20:46] LABS: Reflex FDPQ test REFLEX FDP QUEST TES
[2023-07-23 20:52] LABS: D Dimer 0.31 ug/mLFEU (0-0.59); Fibrinogen 316 mg/dL (174-498)
[2023-07-23 20:53] LABS: INR > 20.00 (0.8-1.2); Partial Thromboplastin Time 76.3 SECONDS (23.9-36.7); Prothrombin Time > 120.00 SECONDS (12.1-14.9)
[2023-07-23] MEDS: phytonadione (ADULT) 10 MG in sodium chloride 0.9% 50 ML 153 MG IV (20:59)
[2023-07-23 21:30] LABS: Troponin(5th) Baseline 9 ng/L (0-10)
--- NOTE | 2023-07-23 21:35 | ECG_ITS ---
[facility] Test Date: 2023-07-23 Pat Name: Adele Leung Department: Room: Gender: Female Safety Lead: : 1970 Requested By: Eduar Marcelo Order Number: [id number] Ezekiel MD: Ran Barrera M.D. Measurements Intervals [place] Rate: 124 P: 133 [place]: 133 QRS: 189 QRSD: 89 T: 127 QT: 355 QTc: 511 Interpretive Statements SINUS TACHYCARDIA ARM LEADS REVERSED [INVERTED P AND QRS IN I] Compared to ECG 02/15/2023 23:48:27 Sinus rhythm no longer present Myocardial infarct finding no longer present Electronically Signed On 07-24-2023 10:16:42 CDT by Ran Barrera M.D. [id number]
[2023-07-23] MEDS: ondansetron 2 mg/ML SDV 2 mL 4 MG IVP (21:36)
[2023-07-23] MEDS: sodium chloride 0.9% 100 mL Bag 50 ML IV (21:37)
[2023-07-23] MEDS: piperacillin-tazobactam 4.5 GM in sodium chloride 0.9% (plus) 50 ML IV (21:38)
[2023-07-23 21:52] LABS: Troponin 5 2HR 13.51 ng/L (0-10)
[2023-07-23 21:54] LABS: Troponin 5 2HR Delta 4.51 ABS# (0-10)
[2023-07-23 21:56] LABS: Add Urine Culture? Yes; Add Urine Microscopic? YES; Bilirubin Urine Neg (Negative); Blood Urine 3+ (Negative); Glucose Urine UA Norm (Normal); Ketones Urine Negative (Negative); Leukocyte Esterase Urine Trace (Negative); Nitrate Urine Negative (Negative); Protein Urine Trace (Negative); RBC Urine 15-25 /hpf (0-2); Squamous Epithelial Cell Urine 0-4 /hpf (0-5); Urine Appearance Clear (CLEAR); Urine Color Yellow (Yellow); Urobilinogen Urine Neg (Negative); WBC Urine RARE /hpf (0-5); pH Urine 6.5 (5-7)
[2023-07-23 22:12] LABS: Adenovirus Not Detected (NOT DETECT); Chlamydia Pneumoniae Not Detected (NOT DETECT); Coronavirus 229E,HKU1,NL63,OC4 Not Detected (NOT DETECT); Human Metapneumovirus Not Detected (NOT DETECT); Human Rhinovirus/Enterovirus Not Detected (NOT DETECT); Influenza A Not Detected (NOT DETECT); Influenza A H1 Not Detected (NOT DETECT); Influenza A H1-2009 Not Detected (NOT DETECT); Influenza A H3 Not Detected (NOT DETECT); Influenza B Not Detected (NOT DETECT); Mycoplasma Pneumoniae Not Detected (NOT DETECT); Parainfluenza Virus Type 1 Not Detected (NOT DETECT); Parainfluenza Virus Type 2 Not Detected (NOT DETECT); Parainfluenza Virus Type 3 Not Detected (NOT DETECT); Parainfluenza Virus Type 4 Not Detected (NOT DETECT); Respiratory Syncytial Virus A Not Detected (NOT DETECT); Respiratory Syncytial Virus B Not Detected (NOT DETECT); SARS-COV-2 Not Detected (NOT DETECT)
[2023-07-23] MEDS: morphine 4 mg/mL SDV 1 mL IVP (22:18)
--- NOTE | 2023-07-23 22:33 | PC.NURSE ---
Pt's 2x units of blood and 1 unit of FFP continued upon transfer to [facility] in [place].
[2023-07-27 23:34] LABS: Fibrinogen Degradation Product <5 mcg/mL (LESS THAN 5)
== END 2023-07-23 22:36 | disposition short-term general hospital (02) ==
PROVIDERS: Nurse Practitioner Family; Emergency Provider Emergency Medicine
DX: K92.2 Gastrointestinal hemorrhage, unspecified (principal); D68.318 Other hemorrhagic disorder due to intrinsic circulating anticoagulants, antibodies, or inhibitors; J44.9 Chronic obstructive pulmonary disease, unspecified; I10 Essential (primary) hypertension; Z11.52 Encounter for screening for COVID-19
CPT/HCPCS: 36415; 36430; 71045; 74177; 80053; 81001; 83690; 84484; 85025; 85362; 85378; 85384; 85610; 85730; 86850; 86900; 86920; 87086; 87486; 87581; 87633; 93005; 96365; 96367; 96375; 99285; 99291; 99292; C9113; J2270; J2405; J2543; J3430; P9016; P9017; Q9967